=== PATIENT | male | born 2005 | race Caucasian/White ===

== ENCOUNTER 2023-09-11 17:17 | Emergency (ER) | payer OTHER ==
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
[2023-09-11] MEDS ORDERED: CEPHALEXIN 250 MG CAP ONE (19:20)
[2023-09-11 19:59] VITALS: BP 116/74; TEMP 97.7; O2SAT 100
== END 2023-09-11 19:35 | disposition home or self-care (01) ==
LOC: ER 17:17
DX: S81.842A Puncture wound with foreign body, left lower leg, initial encounter (principal); W34.09XA Accidental discharge from other specified firearms, initial encounter
CPT/HCPCS: 73706; 73590; Q9967